=== PATIENT | male | born 1965 | race Caucasian/White ===

== ENCOUNTER 2024-10-10 13:22 | Outpatient (CLI) | payer BC | END 2024-10-10 13:23 | disposition home or self-care (01) | LOC: CT 13:22 | PROVIDERS: ATTEND Nurse Practitioner Family | DX: R91.1 Solitary pulmonary nodule (principal); J43.9 Emphysema, unspecified | CPT/HCPCS: 71250 ==

== ENCOUNTER 2024-12-18 11:10 | Outpatient (CLI) | payer BC | END 2024-12-18 11:11 | disposition home or self-care (01) | LOC: MRI 11:10 | DX: M54.16 Radiculopathy, lumbar region (principal); M25.551 Pain in right hip; M25.451 Effusion, right hip; R60.0 Localized edema; M87.851 Other osteonecrosis, right femur; S73.191A Other sprain of right hip, initial encounter; Z96.642 Presence of left artificial hip joint ==